=== PATIENT | female | born 1995 | race Two or more races ===

== ENCOUNTER → 2017-05-26 | Outpatient (CLI) | payer OTHER ==
--- NOTE | 2017-05-26 08:49 | RAD ---
Transabdominal pelvic sonogram Indications: Menorrhagia. Irregular menstrual cycles. Findings: The uterus is anteverted and retroflexed. The longitudinal and AP and transverse dimensions of the uterus are 6.7 cm and 3.8 cm and 4.9 cm respectively. The endometrial canal measures 3 mm in thickness which is normal. No uterine mass or fibroid is seen. The right ovary measures 3.5 cm and 1.0 cm and 1.0 cm in size and is normal. The left ovary measures 1.8 cm and 3.9 cm and 2.4 cm in size and is normal. No adnexal mass is seen. No free fluid is evident. IMPRESSION: Unremarkable transabdominal pelvic examination.
== END | disposition home or self-care (01) ==
LOC: US 07:37 → EDBD 07:37
PROVIDERS: ATTEND Family Medicine
DX: N92.0 Excessive and frequent menstruation with regular cycle (principal)
CPT/HCPCS: 76856